=== PATIENT | female | born 2000 | race Caucasian/White ===

== ENCOUNTER 2020-08-06 14:11 | Emergency (ER) | payer BC ==
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
[2020-08-06 15:25] LABS: ACETAMINOPHEN 0 ug/mL (10-30)
== END 2020-08-06 18:10 ==
LOC: JD.ED 14:11
DX: R45.851 Suicidal ideations (principal); Z20.828 Contact with and (suspected) exposure to other viral communicable diseases
CPT/HCPCS: 36415; 80053; 80306; 80307; 81025; 84443; 85007; 85027; 99285; U0002

== ENCOUNTER 2020-10-27 06:00 | Emergency (ER) | payer BC ==
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
[2020-10-27 07:10] LABS: ACETAMINOPHEN 0 ug/mL (10-30)
== END 2020-10-27 08:54 | disposition home or self-care (01) ==
LOC: JD.ED 06:00
DX: T43.222A Poisoning by selective serotonin reuptake inhibitors, intentional self-harm, initial encounter (principal); F32.89 Other specified depressive episodes; Z79.899 Other long term (current) drug therapy
CPT/HCPCS: 36415; 80053; 80306; 80307; 81001; 84703; 85025; 99285

== ENCOUNTER 2022-05-18 21:42 | Emergency (ER) | payer BC ==
[2022-05-18] MEDS ORDERED: Naproxen 500 MG Tab PO ONE (23:01)
[2022-05-19] MEDS ORDERED: Orphenadrine 100 MG Tab.ER PO ONE (23:01)
== END 2022-05-18 23:50 | disposition home or self-care (01) ==
LOC: JD.ED 21:42
DX: S39.012A Strain of muscle, fascia and tendon of lower back, initial encounter (principal); Z79.899 Other long term (current) drug therapy; X50.0XXA Overexertion from strenuous movement or load, initial encounter; Y99.0 Civilian activity done for income or pay
CPT/HCPCS: 99283; A9270; 99282